=== PATIENT | female | born 1975 | race Two or more races ===

== ENCOUNTER 2025-08-09 09:58 | Outpatient (AMB) | payer MEDICAID, SELFPAY ==
--- NOTE | 2025-08-09 10:04 | A.OFFVIS_ITS ---
Intake Visit Reasons: Chronic back pain, Cyst Allergies morphine Allergy (Unknown, Verified 06/05/25 10:51) Unknown Medication List - Last Reconciled 08/09/25 by Tara Rosado MD ibuprofen 400 mg PO Q8H PRN HPI Comments Details: Spanish Project Administrator ID #[id number] used . 50 yr old Spanish woman who is here for evaluation of left lower anterior ribcage pain that started after a fall about 4 years ago when she fell down some stairs and banged her left chest against the railing. She initially also had left arm pain that is gone but the chest wall pain which is just under the breast remains. She feels that her lungs are bruised underneath and that she has heart problems she can not sleep on the left side. She feels she has to breathe deeply otherwise she does not get enough air. She says she can not wear a bra the pain is constant with some burning sensation in the area tenderness to touch and occasional sharp pains but no electrical jolts. There is some burning but no change in sensation. She says that there is a spot on her lung which is due to some scarring. She has seen a pulmonary doctor for that. She also says that she had a thoracic spine MRI which apparently showed some degenerative disc disease. None of those official reports are available at this time. She is also concerned about damage to heart his spleen and liver. In general she has significant anxiety about this pain. [facility] Medical History (Updated 08/09/25 @ 11:06 by Tara Rosado MD) Back pain Adnexal cyst Lumbar disc disease Review of Systems Const Reports difficulty sleeping and Reports weakness Card Reports chest pain, Reports palpitations and Reports dyspnea Resp Reports dyspnea Neuro Reports weakness Endo Reports palpitations Physical Exam Neuro Other: Mini Mental Status Exam Level of Consciousness:?Alert.? Orientation:?Knows correct year, month, date, day and season.?Knows correct city, county and state. Knows correct location and floor.? Registration:?Able to register 3 objects.? Attention:?Serial 7's performed?? accurately.? Recall:?Able to recall 3 out of 3 objects.? Language:?Normal spontaneous speech, fluency, repetition, naming, comprehension, reading, and writing.? ?? Total Score:?30/30.? Neurological Abnormal neurological findings:??Moderate tenderness of left lower ribcage costal cartilages, otherwise normal. ? Mental Status:?Alert and oriented X 3.?Normal attention, orientation, memory, and affect.? Cranial Nerves:?Pupils are equal, round and reactive to light. Fundoscopy shows normal disc bilaterally. External ocular muscles are intact. Visual mancera are full, no ptosis. Face is symmetrical, no facial weakness or droop. Facial sensations are normal.? Tongue protrudes in midline. Palate elevates symmetrically. Shoulder?? shrugging is normal.? Motor Examination:?Normal muscle tone, bulk and strength.?No atrophy or fasciculations.?No drift of the extended upper extremities.?Deep tendon reflexes are 2+.?Plantars?? are flexor.? ?Motor Strength:? Proximal Muscles (out of 5):?5 Distal Muscles (out of 5):?5 Neck Flexors (out of 5):?5 Neck Extensors (out of 5):?5 Deltoid (out of 5):?5 Biceps (out of 5):?5 Triceps (out of 5):?5 Serratus Anterior (out of 5):?5 Wrist Extensors (out of 5):?5 APB (out of 5):?5 Finger Spread (out of 5):?5 Ileopsoas (out of 5):?5 Quadriceps (out of 5):?5 Hamstrings (out of 5):?5 Tibialis Anterior (out of 5):?5 Peronei (out of 5):?5 EDB (out of 5):?5 Gastrocnemius (out of 5):?5 Straight Leg Raising:?90 degrees.? Sensory Exam:?Normal light touch,?? temperature, pinprick, vibration and joint- position sensations.?Rhomberg?? sign is absent.? Coordination:?No ataxia,?no titubation,?[id number], uzdn-[id number]-[id number] test, and rapid alternating?? movements were normal.? Gait Exam:?Normal. ? Cerebellar Signs:?[id number]-[id number] and?? qawb-dp-[id number] is normal.?No dysdiadochokinesia.? Extrapyramidal System:?No tremor or?rigidity, normal facial expressions.?No bradykinesia. No bradyphrenia. Normal arm swing and posture. No propulsion or retropulsion.? Speech:?Normal,?no dysphasia or dysarthria.? General Examination GENERAL APPEARANCE:??Morbid obesity, in no acute distress?.? ?? HEAD:??normocephalic,?atraumatic.? ?? EYES:??sclera non-icteric,?conjunctiva clear.? ?? EARS:??auditory canal clear,?tympanic membrane intact, clear.? ?? NOSE:??no lesions.? ?? ORAL CAVITY:??gums normal,?mucosa moist,?no lesions.? ?? THROAT:??clear.? ?? NECK/THYROID:??no cervical lymphadenopathy,?thyroid normal,?neck supple, full range of motion,?no carotid bruit.? ?? SKIN:??no rashes,?no significant?? birthmarks.? ?? HEART:??S1, S2 normal,?no murmurs? ?? LUNGS:??clear anteriorly and ?posteriorly? ?? CHEST:??no gross rib deformity,?clear to ?auscultation.? ?? BACK:??normal exam of spine.? ?? MUSCULOSKELETAL:??normal.? ?? EXTREMITIES:??no edema.? ?? PERIPHERAL PULSES:??normal.? ?? PSYCH:??alert, oriented,?cognitive function intact,?cooperative with exam?,?alert,?? oriented,?cognitive ?function intact,?cooperative with exam.? Assessment & Plan Assessment & Plan (1) Chest pain: Code(s): R07.9 - Chest pain, unspecified Category: Medical (2) Rib contusion: Comment: CT scan of the chest on 08/04/2024 showed an oval smooth mass abutting the medial pleural reflection at the level of the aortic arch at T4. There was no definite communication with the spinal canal and no bone destruction. Diagnostic possibilities that were considered would be a neurogenic tumor pleural tumor or a perineural cyst or an arachnoid cyst. 11/03/2024 MRI of the thoracic spine shows no suspicious lesions in the thoracic spine. 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 The size of this is 2.1 x 1 x 1.9 cm. Code(s): S29.8XXA - Other specified injuries of thorax, initial encounter Category: Medical Plan Symptomatic treatment with indomethacin 50 mg t.i.d. for costochondritis, gabapentin 300 mg HS for symptomatic relief. She will be seen in follow-up in October. If there is no improvement, follow-up MRI of the thoracic spine will be done to evaluate the cystic lesion at T4 level. Medications: New indomethacin administer with food or milk 50 mg PO TID 90 caps 1RF 30 days gabapentin 300 mg PO BEDTIME 30 caps 1RF Coding Level of Care Code New Pt Level 5 (56263) Diagnoses Chest pain R07.9 Rib contusion S29.8XXA
== END 2025-08-09 11:08 | disposition home or self-care (01) ==
LOC: HO.HSM 09:59
PROVIDERS: PCP Internal Medicine; Visit Provider Psychiatry & Neurology Neurology
DX: R07.9 Chest pain, unspecified (principal); S29.8XXA Other specified injuries of thorax, initial encounter
CPT/HCPCS: 99205

== ENCOUNTER → 2025-08-09 09:58 | Outpatient (BNVA) | payer MEDICAID, SELFPAY | PROVIDERS: PCP Internal Medicine; Visit Provider Psychiatry & Neurology Neurology | DX: S29.8XXA Other specified injuries of thorax, initial encounter (principal); R07.9 Chest pain, unspecified; W19.XXXA Unspecified fall, initial encounter; Y93.9 Activity, unspecified; Y92.9 Unspecified place or not applicable; Y99.9 Unspecified external cause status | CPT/HCPCS: 99202 ==